=== PATIENT | male | born 1985 | race African-American/Black ===

== ENCOUNTER 2018-05-31 21:14 | Emergency (ER) | payer SELFPAY ==
[~2018-05-31] VITALS: Ht 180.3 cm; Wt 175.9 kg
[2018-05-31 21:22] VITALS: BP 158/97
== END 2018-05-31 22:04 | disposition home or self-care (01) ==
LOC: ED 21:50
DX: L29.9 Pruritus, unspecified (principal); I10 Essential (primary) hypertension; Z90.89 Acquired absence of other organs
CPT/HCPCS: 99282

== ENCOUNTER 2018-06-01 08:47 | Emergency (ER) | payer SELFPAY ==
[~2018-06-01] VITALS: Ht 180.3 cm; Wt 174.0 kg
[2018-06-01 08:50] VITALS: BP 154/100
== END 2018-06-01 09:32 | disposition home or self-care (01) ==
LOC: ED 09:13
DX: S50.861A Insect bite (nonvenomous) of right forearm, initial encounter (principal); L08.9 Local infection of the skin and subcutaneous tissue, unspecified; I10 Essential (primary) hypertension; W57.XXXA Bitten or stung by nonvenomous insect and other nonvenomous arthropods, initial encounter; Y93.89 Activity, other specified; Y92.89 Other specified places as the place of occurrence of the external cause; Y99.8 Other external cause status
CPT/HCPCS: 99283